=== PATIENT | female | born 1945 | race Caucasian/White ===

== ENCOUNTER 2017-01-28 10:25 | Emergency (ER) | payer MEDICARE, OTHER ==
[~2017-01-28] VITALS: Ht 152.4 cm; Wt 54.5 kg
[~2017-01-28 10:25] MED LIST: LOSA25TA14 PO
[2017-01-28 10:51] VITALS: BP 135/87
[2017-01-28] MEDS: oxyCODONE/APAP 5/325 MG 1 TAB TAB PO ONE (14:25)
[2017-01-28] MEDS: IBUPROFEN 600 MG TAB PO ONE (14:25)
[2017-01-28 16:08] VITALS: BP 143/63
== END 2017-01-28 16:08 | disposition home or self-care (01) ==
LOC: MED 10:25
DX: S93.402A Sprain of unspecified ligament of left ankle, initial encounter (principal); E78.00 Pure hypercholesterolemia, unspecified; I10 Essential (primary) hypertension; K21.9 Gastro-esophageal reflux disease without esophagitis; W18.09XA Striking against other object with subsequent fall, initial encounter; Y93.89 Activity, other specified; Y92.89 Other specified places as the place of occurrence of the external cause; Y99.8 Other external cause status
CPT/HCPCS: 29515; 73610; 99284

== ENCOUNTER 2017-02-16 12:58 | Outpatient (CLI) | payer MEDICARE, OTHER | END 2017-02-16 19:59 | disposition home or self-care (01) | LOC: MRD 12:58 | PROVIDERS: ATTEND Family Medicine | DX: I82.401 Acute embolism and thrombosis of unspecified deep veins of right lower extremity (principal); M71.21 Synovial cyst of popliteal space [Baker], right knee | CPT/HCPCS: 73562 ==

== ENCOUNTER 2018-12-11 14:33 | Emergency (ER) | payer MEDICARE, OTHER ==
[~2018-12-11] VITALS: Ht 147.3 cm; Wt 55.8 kg
[2018-12-11 14:53] VITALS: BP 144/92
--- NOTE | 2018-12-11 15:05 | NUR ---
PATIENT AMBULATED TO ER BED 12.
--- NOTE | 2018-12-11 15:07 | NUR ---
PT IS A 73 Y/O FEMALE WHO PRESENTS TO THE ED C/O COLD SYMPTOMS. PT STATES THAT SHE WAS SEEN BY PCP AND GIVEN AZITHROMYCIN RX AND REPORTS SIDE EFFECTS: RINGING EARS, DIZZINESS AND HEADACHE. PT REPORTS 7/10 ACHING CHEST PAIN AND HEADACHE. ALSO REPORTS COUGH, CONGESTION. PT AWAKE AND ALERT, RR EVEN/UNLABORED. PT REPOSITIOEND FOR COMFORT, BED IN LOWEST POSITION. ER MD DR. LEONARD NOTIFIED. WILL CONTINUE TO MONITOR. HX--HTN, VERTIGO RX---LOSARTAN (NON COMPLAINT)
[2018-12-11] MEDS ORDERED: cloNIDine 0.1 MG TAB PO ONE (16:00)
[2018-12-11 16:36] VITALS: BP 140/87
--- NOTE | 2018-12-11 16:36 | NUR ---
Patient discharged with v/s stable. Written and verbal after care instructions given and explained. Patient alert, oriented and verbalized understanding of instructions. Ambulatory with steady gait. All questions addressed prior to discharge. ID band removed. Patient advised to follow up with PMD. Rx of MOTRIN, SYLVIA, FLONASE given. Patient educated on indication of medication including possible reaction and side effects. Opportunity to ask questions provided and answered.
== END 2018-12-11 16:36 | disposition home or self-care (01) ==
LOC: MED 14:33
DX: J30.9 Allergic rhinitis, unspecified (principal); K21.9 Gastro-esophageal reflux disease without esophagitis; I10 Essential (primary) hypertension; Z79.899 Other long term (current) drug therapy
CPT/HCPCS: 99283

== ENCOUNTER 2019-02-09 11:05 | Outpatient (CLI) | payer MEDICARE, OTHER | END 2019-02-09 20:10 | disposition home or self-care (01) | LOC: MRD 11:05 | PROVIDERS: ATTEND Internal Medicine Cardiovascular Disease | DX: M25.551 Pain in right hip (principal); I10 Essential (primary) hypertension; K21.9 Gastro-esophageal reflux disease without esophagitis | CPT/HCPCS: 73502; Q0092 ==

== ENCOUNTER 2021-09-06 18:40 | Emergency (ER) | payer MEDICARE, OTHER ==
[~2021-09-06] VITALS: Ht 149.9 cm; Wt 55.5 kg
[~2021-09-06 18:40] MED LIST changes: -LOSA25TA14 PO; +LOSA25TA32 PO
[2021-09-06 18:52] VITALS: BP 177/101
--- NOTE | 2021-09-06 19:34 | NUR ---
Patient presents to the ED with c/o of dysuria x5 days. Patient reports taking medication from [facility] but with no relief. Pt denies any hematuria or discharge. No s/s of distress at this time. Urine sample obtained
[2021-09-06 20:13] LABS: BASOPHILS # (AUTO) 0.1 K/uL (0.00-0.22); BASOPHILS % (AUTO) 1.2 % (0.0-2.0); EOSINOPHILS # (AUTO) 0.1 K/uL (0-0.4); EOSINOPHILS % (AUTO) 0.9 % (0.0-4.0); HEMATOCRIT 34.8 % (36-48); HEMOGLOBIN 11.6 g/dL (12.0-16.0); LYMPHOCYTES # (AUTO) 1.8 K/uL (2.5-16.5); LYMPHOCYTES % (AUTO) 17.3 % (20.5-51.1); MEAN CORPUSCULAR HEMOGLOBIN 32 pg (27-31); MEAN CORPUSCULAR HGB CONC 33 g/dL (33-37); MEAN CORPUSCULAR VOLUME 94.9 fL (80-94); MONOCYTES # (AUTO) 0.6 K/uL (0.8-1.0); MONOCYTES % (AUTO) 5.6 % (1.7-9.3); NEUTROPHILS # (AUTO) 7.6 K/uL (1.8-7.7); PLATELET COUNT (AUTO) 192 K/uL (140-450); RED BLOOD CELL COUNT(AUTO) 3.67 MIL/uL (4.20-5.40); RED CELL DISTRIBUTION WIDTH 13.8 % (11.6-13.7); WHITE BLOOD COUNT (AUTO) 10.2 K/uL (4.8-10.8)
[2021-09-06 20:14] LABS: APPEARANCE,URINE HAZY (CLEAR); BILIRUBIN,URINE NEGATIVE (NEGATIVE); BLOOD, URINE 3+ (NEGATIVE); COLOR,URINE YELLOW (YELLOW); LEUKOCYTE ESTERASE ,URINE 1+ (NEGATIVE); NITRITE, URINE NEGATIVE (NEGATIVE); PH,URINE 6.5 (5.0-9.0); UGLUCOSE NEGATIVE (NEGATIVE)
[2021-09-06 20:24] LABS: PROTHROMBIN TIME 9.9 secs (10.8-13.4)
--- NOTE | 2021-09-06 20:31 | NUR ---
Patient left the unit for CT head
[2021-09-06 20:32] LABS: ALBUMIN 3.5 g/dL (3.4-5.0); ANION GAP 10.8 (8-16); ASPARTATE AMINOTRANSFERASE 21 U/L (15-37); CARBON DIOXIDE 27.7 mmol/L (21-32); CHLORIDE 103 mmol/L (98-107); CREATININE 0.8 mg/dL (0.6-1.3); GLUCOSE 104 mg/dL (74-106); POTASSIUM 3.5 mmol/L (3.5-5.1); SODIUM SERUM 138 mmol/L (136-145); TOTAL BILIRUBIN 0.3 mg/dL (0.0-1.0); UREA NITROGEN, BLOOD 15 mg/dL (7-18)
[2021-09-06 20:34] LABS: RBC,URINE 80-100 /HPF (0-5)
[2021-09-06] MEDS ORDERED: ACETAMINOPHEN 325 MG TAB PO ONE (22:00)
[2021-09-06] MEDS ORDERED: cephALEXin 500 MG CAP PO ONE (22:00)
[2021-09-06] MEDS ORDERED: ACET-2619 PO (22:00)
[2021-09-06] MEDS ORDERED: CEPH-588 PO (22:02)
[2021-09-06] MEDS ORDERED: LOSARTAN 25 MG TAB PO SCH (22:20)
[2021-09-06] MEDS ORDERED: LOSA25TA32 PO (22:21)
[2021-09-06 22:45] VITALS: BP 161/85
--- NOTE | 2021-09-06 22:45 | NUR ---
Patient discharged with v/s stable. Written and verbal after care instructions given and explained. Patient alert, oriented and verbalized understanding of instructions. Ambulatory with steady gait. All questions addressed prior to discharge. ID band removed. Patient advised to follow up with PMD. Rx of TYLENOL, KEFLEX, COZAAR given. Patient educated on indication of medication including possible reaction and side effects. Opportunity to ask questions provided and answered.
== END 2021-09-06 22:45 | disposition home or self-care (01) ==
LOC: MED 18:40
DX: R51.9 Headache, unspecified (principal); N39.0 Urinary tract infection, site not specified; I10 Essential (primary) hypertension; D64.9 Anemia, unspecified
CPT/HCPCS: 36415; 70450; 80053; 81001; 85025; 85610; 87086; 99284